=== PATIENT | female | born 2000 | race Caucasian/White ===

== ENCOUNTER 2021-05-10 12:47 | Emergency (ER) | payer OTHER ==
[~2021-05-10] VITALS: Ht 170.2 cm; Wt 63.5 kg
[~2021-05-10 12:47] MED LIST: ACETAMINOP500 MG/5 M PO; ACETAMINOPHEN-1 EAC1 PO; APAP/CODEI12 MG/5 ML PO; AUGMENTIN 875875 MG PO; AUGMENTIN400 MG/53 PO; BCP; FLAGYL500 MG PO; HYDROXYZINE HCL25 M1 PO; IBUPROFEN100 MG/52 PO; KEFLEX250 MG/5 M PO; MIRALAX17 G1; NOHOMEMEDICATIONS; OMEPRAZOLE 20 M20 M1 PO; ONDANSETRON HCL4 M2; PROAIR HFA8.5 GM; PROMETHAZI6.25 MG/5 PO; SINGULAIR 10 MG10 M1; TAMIFLU; TIZANIDINE; VENTOLIN HFA 1818 GM; ZANTAC 150MG T150 MG PO; ZOFRAN ODT4 MG PO; ZOFRAN4 MG/5 ML PO
[2021-05-10 13:09] VITALS: BP 133/95
[2021-05-10 13:29] LABS: URINE BILIRUBIN NEGATIVE (Negative); URINE BLOOD NEGATIVE (Negative); URINE CLARITY CLEAR; URINE COLOR YELLOW; URINE GLUCOSE-RANDOM* NEGATIVE (Negative); URINE KETONES NEGATIVE (Negative); URINE LEUKOCYTES-REFLEX NEGATIVE (Negative); URINE NITRITE-REFLEX NEGATIVE (Negative); URINE PROTEIN (DIPSTICK) NEGATIVE (Negative); URINE UROBILINOGEN 0.2 E.U./dl (0.2-1.0)
[2021-05-10 14:05] LABS: ABSOLUTE NEUTROPHILS 2.9 thou/uL (1.4-8.2); BASOPHILS 1.3 % (0.0-2.0); EOSINOPHILS 7.9 % (0.0-3.0); HEMATOCRIT 38.7 % (37.0-47.0); HEMOGLOBIN 12.9 gm/dL (12.0-15.0); LYMPHOCYTES 28.3 % (24.0-44.0); MCH 29.4 pg (26.0-34.0); MCHC 33.4 g/dL (28.0-37.0); MCV 87.9 fL (80.0-100.0); MONOCYTES 6.1 % (1.0-8.0); PLATELET COUNT 284 thou/uL (150-400); POLYS 56.4 % (36.0-66.0); RDW 12.5 % (10.5-14.5); WBC 5.2 thou/uL (4.0-11.0)
[2021-05-10 14:25] LABS: CALCIUM 9.2 mg/dL (8.5-10.1); CREATININE 0.6 mg/dL (0.6-1.0); POTASSIUM 3.6 mmol/L (3.5-5.1)
--- NOTE | 2021-05-11 07:18 | EKG ---
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
== END 2021-05-10 14:58 | disposition home or self-care (01) ==
LOC: ER 12:47
PROVIDERS: Emergency Medicine; Student in an Organized Health Care Education/Training Program
DX: R07.89 Other chest pain (principal); Z20.822 Contact with and (suspected) exposure to COVID-19; J45.909 Unspecified asthma, uncomplicated; Z90.49 Acquired absence of other specified parts of digestive tract; Z90.89 Acquired absence of other organs; Z79.899 Other long term (current) drug therapy